=== PATIENT | male | born 1960 | race Caucasian/White ===

== ENCOUNTER 2018-08-06 12:07 | Day surgery (SDC) | payer OTHER ==
[2018-08-06] MEDS ORDERED: FAMOTIDINE 20 MG TAB PO ONE (12:12)
[2018-08-06] MEDS ORDERED: NS 1,000 ML IV ONE (12:12)
[2018-08-06] MEDS ORDERED: diphenhydrAMINE 25 MG CAP PO ONE ×2 (12:12→12:40)
[2018-08-06] MEDS ORDERED: ASPIRIN EC 325 MG TAB PO ONE ×2 (12:12→12:40)
[2018-08-06] MEDS ORDERED: DIAZEPAM 5 MG TAB PO ONE (12:12)
--- NOTE | 2018-08-06 12:20 | PDHPUP ---
History & Physical Update H&P update statement: This history and physical update is based on an assessment of the patient which was completed after admission or registration (within 24 hours), but prior to the surgery/procedure. H&P update: H&P reviewed & patient examined, no change in patient's condition since H&P completed
--- NOTE | 2018-08-06 12:21 | PDPROPOC ---
Sedation Plan of Care Sedation Plan of Care: vital signs stable, mental status noted, patient educated of risks, benefits, alternatives, patient can tolerate sedation ASA Classification: ASA 2 Planned drugs: fentanyl, midazolam Mallampati Score: Class 1 Mallampati Reference Image: Patient passed 3-3-2 rule?: Yes
[2018-08-06] MEDS ORDERED: FAMOTIDINE 20 MG TAB ONE (12:40)
[2018-08-06] MEDS ORDERED: DIAZEPAM 5 MG TAB ONE (12:40)
[2018-08-06 12:48] LABS: PLATELET COUNT 191 10^3/uL (150-400)
[2018-08-06 13:00] LABS: INR 0.93 (0.83-1.16); PROTIME(PATIENT) 12.7 SEC (12.0-15.0)
[2018-08-06] MEDS ORDERED: MIDAZOLAM 2 MG/2 ML VIAL ONE (13:13)
[2018-08-06] MEDS ORDERED: VERAPAMIL 5 MG/2 ML VIAL ONE (13:13)
[2018-08-06] MEDS ORDERED: HEPARIN 10,000 UNIT/10 ML MDV (1,000 UNIT/ML) ONE (13:13)
[2018-08-06] MEDS ORDERED: IOPAMIDOL (ISOVUE-370) 150 ML BTL IV ONE (13:13)
[2018-08-06] MEDS ORDERED: LIDOCAINE 1% 300 MG/30 ML SDV ONE (13:13)
[2018-08-06] MEDS ORDERED: fentaNYL 100 MCG/2 ML INJ ONE (13:13)
--- NOTE | 2018-08-06 15:22 | PDDXCAT ---
Diagnostic Cath Note - . Date: 08/06/18 [employer] Developer: Basil Indication: Class I/II angina, intolerance to med therapy or failure to respond High-risk criteria on non-invasive testing: stress-induced moderate-size multiple perfusion defects - Procedure Access: right wrist Procedure: left heart catheterization, coronary angiography, left ventriculogram - Materials Left Heart Cath size: 5F Left Heart Cath materials: JL4.0, pigtail, Amish's R - Findings-Left Heart Catheterization LM: Normal LAD: Normal LCX: Co dominant: Normal RCA: Co dominant: Normal EDP: 12 mm of mercury LVEF: 64 % Wall motion: Normal Complications: None Closure method: TR Band Assessment: Angiographically normal coronary arteries. Normal LV systolic function with normal filling pressures. Plan: Aggressive primary prevention
--- NOTE | 2018-08-08 16:39 | CPEKG ---
Test Reason : OPEN Blood Pressure : / mmHG Vent. Rate : 104 BPM Atrial Rate : 103 BPM P-R Int : 173 ms QRS Dur : 086 ms QT Int : 341 ms P-R-T Axes : 025 025 051 degrees QTc Int : 449 ms Sinus tachycardia Confirmed by Oj Osborne ([id number]) on 08/08/2018 4:39:15 PM Referred By: SAMIR GARCÍA Confirmed By:Oj Osborne
== END 2018-08-06 18:10 | disposition home or self-care (01) ==
LOC: FCATH 12:07
PROVIDERS: ATTEND Internal Medicine Interventional Cardiology
DX: R94.39 Abnormal result of other cardiovascular function study (principal); R06.02 Shortness of breath; I10 Essential (primary) hypertension; G47.30 Sleep apnea, unspecified; E66.9 Obesity, unspecified
CPT/HCPCS: 93005; 93458; C1769; J1644; J2250; J3010; Q9967